=== PATIENT | male | born 1995 | race African-American/Black ===

== ENCOUNTER 2016-11-18 15:51 | Emergency (ER) | payer BC ==
[~2016-11-18] VITALS: Ht 177.8 cm; Wt 77.3 kg
[2016-11-18 15:52] VITALS: BP 116/57; PULSE 56; RESP 12; TEMP 97.6; O2SAT 98
[2016-11-18] MEDS ORDERED: OCUF0.3D RIGHT EYE (16:22)
--- NOTE | 2016-11-18 16:29 | PD ---
HPI Chief Complaint: Eye Problems/Injury Time Seen by Provider: 16:23 Travel History International Travel<30 days: No Contact w/Intl Traveler<30days: No Traveled to known affect area: No History of Present Illness HPI 21-year-old male that presents to the ED for evaluation of right eye problems. Per patient he wears contacts and on 2 days ago he went to the pool with his contacts on and when she got out of the pool he realized that he still had his contacts out and started having some discomfort to the right eye. Per patient he immediately to call the contact on the left thigh but he is not sure if he took the one of the right eye. Per patient he was able to find it. Per patient he has no sensation of foreign body but he is not sure if the contacts still there. Per patient he himself has looked multiple times with no finding anything. Per patient he was concerned because his eyes starting to turn red and he is having irritation and pain on the eye. Patient states that he has no allergies to medication. No chest pain or shortness of breath. Per patient the pain is only today and is 6 out of 10. Has not taken anything for this. Has not seen his eye doctor for this. He denies any radiation of the pain. No posterior the left eye. He has not weared contacts since. PFSH Past Medical History Medical History: Denies Significant Hx Family History Family History: Negative Social History Alcohol Use: No Tobacco Use: No Substance Use: No Allergies-Medications Reported Meds & Prescriptions Reported Meds & Active Scripts Active Ocuflox Opth Drops (Ofloxacin Opth Drops) 0.3 % Drops 1 Drop RIGHT EYE Q4HR Review of Systems General / Constitutional: No: Fever, Chills, Weight Gain, Weight Loss, Other Eyes: Positive: Drainage, Redness, Pain, Tearing, No: Diploplia, Blurred Vision, Photophobia, Foreign Body Sensation, Blind Spots, Visual changes, Blindness, Other HENT: No: Headaches, Vertigo, Lightheadedness, Sore Throat, Rhinitis, Rhinorrhea, Congestion, Nosebleed, Neck Stiffness, Neck Pain, Masses, Gingival Bleeding, Dental Difficulties, Ear Discharge, Earache, Other Cardiovascular: No: Chest Pain or Discomfort, Palpitations, Irregular Rhythm, Tachycardia, Diaphoresis, Syncope, Dyspnea on exertion, Varicosities, Edema, Cyanosis, Varicosities, Phlebitis, Claudication, Other Respiratory: No: Cough, Shortness of Breath, Wheezing, Sneezing, Orthopnea, Hemoptysis, Stridor, Night Sweats, Pleuritic Pain, Other Gastrointestinal: No: Nausea, Vomiting, Diarrhea, Abdominal Pain, Hematemesis, Hematochezia, Constipation, Changes in Bowel Habits, Indigestion, Dysphagia, Loss of Appetite, Other Genitourinary: No: Urgency, Frequency, Dysuria, Nocturia, Hematuria, Decreased Urinary Output, Oliguria, Hesitancy, Dribbling, Incontinence, Pelvic Pain, Flank Pain, Dyspareunia, Discharge, Dysmenorrhea, Menorrhagia, Metorrhagia, Vaginal Bleeding, Other Musculoskeletal: No: Myalgias, Arthralgias, Limited ROM, Weakness, Cramping, Edema, Pain, Atrophy, Other Skin: No Rash, No Itching, No Dryness, No Lumps, No Hives, No Change in Pigmentation, No Change in nails, No Alopecia, No Lesions, No Breast Lumps, No Breast Tenderness, No Breast Swelling, No Other Neurologic: No: Weakness, Dizziness, Syncope, Focal Abnormalities, Coordination Problem, Tremor, Ataxia, Headache, Change in Mentation, Slurred Speech, Paresthesia, Incontinence, Seizures, Sensory Disturbance, Other Psychiatric: No: Anxiety, Depression, Suicidal Ideations, Disorder of Thought, Mood Disorder, Substance Abuse, Homicidal Ideation, Other Endocrine: No: Heat Intolerance, Cold Intolerance, Polyuria, Polydipsia, Other Hematologic/Lymphatic: No: Easy Bruising, Lymph Node Enlargement, Other Physical Exam Narrative GENERAL: SKIN: Warm and dry. HEAD: Atraumatic. Normocephalic. EYES: Pupils equal and round 4 mm reactive to light and accommodation. No scleral icterus. No injection or drainage. EOM intact bilaterally. Peripheral vision intact bilaterally. No obvious foreign body noted on the eye itself. Fluorescein stain revealed what appears to be early corneal ulcer. No obvious sign of contact noted even with fluorescein stain. Inversion of the eyelids reveal no foreign body. ENT: No nasal bleeding or discharge. Mucous membranes pink and moist. Tongue is midline. No uvula deviation. NECK: Trachea midline. No JVD. CARDIOVASCULAR: Regular rate and rhythm. RESPIRATORY: No accessory muscle use. Clear to auscultation. Breath sounds equal bilaterally. GASTROINTESTINAL: Abdomen soft, non-tender, nondistended. Hepatic and splenic margins not palpable. MUSCULOSKELETAL: Extremities without clubbing, cyanosis, or edema. No obvious deformities. NEUROLOGICAL: Awake and alert. No obvious cranial nerve deficits. Motor grossly within normal limits. Five out of 5 muscle strength in the arms and legs. Normal speech. PSYCHIATRIC: Appropriate mood and affect; insight and judgment normal. Data Data Last Documented VS Vital Signs Date Time Temp Pulse Resp B/P Pulse Ox O2 Delivery O2 Flow Rate FiO2 11/18/16 15:52 97.6 56 12 116/57 98 Room Air MDM Medical Decision Making Medical Screen Exam Complete: Yes Emergency Medical Condition: Yes Medical Record Reviewed: Yes Differential Diagnosis Corneal abrasion versus corneal ulcer versus foreign body Narrative Course 21-year-old male that presents to the ED for evaluation of right eye irritation. Patient was properly examined and was found to have signs and symptoms very consistent what appears to be an early corneal ulcer. I did not find any sign of contact. Using a Q-tip I even try to see the resident's any contact still on the cornea itself but does not appear to be so. At this time I believe that the contact already fell and patient likely has a corneal ulcer from swimming with the contact. At this time I recommend trial of ofloxacin drops to cover for pseudomonas infection secondary to contact use. I strongly suggested the patient that he follows up with an eye doctor in the next couple of days. He was given information for Dr. Blake. I recommend Motrin or Tylenol for pain. Apply drops as prescribed. No contacts for at least 2 weeks. See ED if worsening symptoms. Diagnosis Primary Impression: Corneal ulcer Qualified Code: H16.001 - Corneal ulcer, right Referrals: Susanna Blake MD Patient Instructions: General Instructions Additional Instructions: Take medication as prescribed. Motrin or Tylenol for pain. Follow-up with eye doctor disc week. See ED for worsening symptoms. Med/Other Pt SpecificInfo: Prescription(s) given Scripts Ofloxacin Opth Drops (Ocuflox Opth Drops)0.3 % Drops1 Drop RIGHT EYE Q4HR #1 BOTTLE Ref 0 Prov:Cherise Hood MD 11/18/16 Disposition: 01 DISCHARGE HOME Condition: Stable Delvin Armendariz Nov 18, 2016 16:29
== END 2016-11-18 16:46 | disposition home or self-care (01) ==
LOC: NEPB 15:51
DX: H16.001 Unspecified corneal ulcer, right eye (principal)
CPT/HCPCS: 99283

== ENCOUNTER 2018-01-23 00:11 | Inpatient (IN) | payer BC, OTHER ==
[~2018-01-23] VITALS: Ht 170.2 cm; Wt 70.5 kg
[~2018-01-23 00:11] MED LIST: OCUF0.3D RIGHT EYE
[2018-01-23 00:23] VITALS: BP 120/71; PULSE 88; RESP 19; TEMP 98.1; O2SAT 98
[2018-01-23 00:49] LABS: AUTOMATED NEUTROPHIL # 4.7 TH/MM3 (1.8-7.7); BASOPHIL # 0.1 TH/MM3 (0-0.2); BASOPHIL % 0.7 % (0.0-2.0); EOSINOPHIL # 0.3 TH/MM3 (0-0.4); EOSINOPHIL % 3.3 % (0.0-4.0); HEMATOCRIT 45.1 % (39.0-51.0); HEMOGLOBIN 14.7 GM/DL (13.0-17.0); LYMPH % 29.5 % (9.0-44.0); LYMPHOCYTE # 2.4 TH/MM3 (1.0-4.8); MEAN CELL VOLUME 79.5 FL (80.0-100.0); MEAN CORPUSCULAR HEMOGLOBIN 25.9 PG (27.0-34.0); MEAN CORPUSCULAR HGB CONC 32.7 % (32.0-36.0); MEAN PLATELET VOLUME 9.1 FL (7.0-11.0); MONO % 9.7 % (0.0-8.0); MONOCYTE # 0.8 TH/MM3 (0-0.9); NEUT % 56.8 % (16.0-70.0); PLATELET COUNT 269 TH/MM3 (150-450); RED BLOOD COUNT 5.67 MIL/MM3 (4.50-5.90); RED CELL DISTRIBUTION WIDTH 14.1 % (11.6-17.2); WHITE BLOOD COUNT 8.3 TH/MM3 (4.0-11.0)
--- NOTE | 2018-01-23 01:02 | PD ---
HPI Chief Complaint: Psychiatric Symptoms Time Seen by Provider: 01:22 Travel History International Travel<30 days: No Contact w/Intl Traveler<30days: No Traveled to known affect area: No History of Present Illness HPI 22-year-old black male presents emergency department under [place] act for psychological evaluation. The patient states that he has been depressed for some time now. He was having problems with his girlfriend, school and other issues he does not want to talk about. He states that he had taken 12 Tylenol and 12 ibuprofen tablets around noon time today. He had also consumed a large amount of alcohol, smoke marijuana, and smoked black and mild cigars. Patient was found underneath a bridge this evening hanging out. He states that he had been seen at school by the psychologist and had been having to: Twice a day for the past week because he has been feeling depressed and having suicidal thoughts. Patient denies taking any other medications. He denies any homicidal ideation. He does complain of some upset stomach but no vomiting. Symptoms are severe. No alleviating factors. Exacerbated by social issues. PFSH Past Medical History Narrative Medical Depression Anemia: No Depression: No Diabetes: No Headaches: No Hypertension: No Schizophrenia: No Seizures: No Tetanus Vaccination: < 5 Years Past Surgical History Surgical History: No Previous Surgery Social History Alcohol Use: Yes Tobacco Use: Yes Substance Use: Yes Allergies-Medications (Allergen,Severity, Reaction): Coded Allergies: [facility] Dust (Verified Allergy, Unknown, 01/23/18) No Known Allergies (Unverified Allergy, Unknown, 01/23/18) Reported Meds & Prescriptions Reported Meds & Active Scripts Active No Active Prescriptions or Reported Medications Review of Systems General / Constitutional: No: Fever Eyes: No: Visual changes HENT: No: Headaches Cardiovascular: No: Chest Pain or Discomfort Respiratory: No: Shortness of Breath Gastrointestinal: Positive: Abdominal Pain, Indigestion, No: Nausea, Vomiting, Diarrhea Genitourinary: No: Dysuria Musculoskeletal: No: Pain Skin: No Rash Neurologic: No: Weakness Psychiatric: Positive: Depression, Suicidal Ideations, Mood Disorder, Substance Abuse, No: Anxiety, Disorder of Thought, Homicidal Ideation Endocrine: No: Polydipsia Hematologic/Lymphatic: No: Easy Bruising Physical Exam Narrative GENERAL: Well-nourished, well-developed patient. Patient does not appear to be somnolent. He is cooperative. SKIN: Warm and dry. HEAD: Normocephalic and atraumatic. EYES: No scleral icterus. No injection or drainage. ENT: No nasal drainage noted. Mucous membranes pink. Airway patent. NECK: Supple, trachea midline. Moves head freely without obvious discomfort. CARDIOVASCULAR: Regular rate and rhythm without murmurs, gallops, or rubs. RESPIRATORY: Breath sounds equal bilaterally. No accessory muscle use. GASTROINTESTINAL: Abdomen soft, non-tender, nondistended. EXTREMITIES: No cyanosis or edema. BACK: Nontender without obvious deformity. No CVA tenderness. NEURO: Patient is alert and oriented. no sensorimotor deficits. Nonfocal. Normal speech. PSYCH: No delusions. No auditory or visual hallucinations. Data Data Last Documented VS Vital Signs Date Time Temp Pulse Resp B/P (MAP) Pulse Ox O2 Delivery O2 Flow Rate FiO2 01/23/18 00:23 98.1 88 19 120/71 (87) 98 Orders Orders Complete Blood Count With Diff (01/23/18 00:20) Comprehensive Metabolic Panel (01/23/18 00:20) Psych Screen (01/23/18 00:20) Drug Screen, Random Urine (01/23/18 00:20) Alcohol (Ethanol) (01/23/18 00:20) Salicylates (Aspirin) (01/23/18 00:20) Tylenol (Acetaminophen) (01/23/18 00:20) Labs Laboratory Tests Test 01/23/18 00:27 01/23/18 00:29 White Blood Count 8.3 TH/MM3 Red Blood Count 5.67 MIL/MM3 Hemoglobin 14.7 GM/DL Hematocrit 45.1 % Mean Corpuscular Volume 79.5 FL Mean Corpuscular Hemoglobin 25.9 PG Mean Corpuscular Hemoglobin Concent 32.7 % Red Cell Distribution Width 14.1 % Platelet Count 269 TH/MM3 Mean Platelet Volume 9.1 FL Neutrophils (%) (Auto) 56.8 % Lymphocytes (%) (Auto) 29.5 % Monocytes (%) (Auto) 9.7 % Eosinophils (%) (Auto) 3.3 % Basophils (%) (Auto) 0.7 % Neutrophils # (Auto) 4.7 TH/MM3 Lymphocytes # (Auto) 2.4 TH/MM3 Monocytes # (Auto) 0.8 TH/MM3 Eosinophils # (Auto) 0.3 TH/MM3 Basophils # (Auto) 0.1 TH/MM3 CBC Comment DIFF FINAL Differential Comment Blood Urea Nitrogen 12 MG/DL Creatinine 1.12 MG/DL Random Glucose 92 MG/DL Total Protein 7.7 GM/DL Albumin 4.3 GM/DL Calcium Level 8.7 MG/DL Alkaline Phosphatase 91 U/L Aspartate Amino Transf (AST/SGOT) 19 U/L Alanine Aminotransferase (ALT/SGPT) 28 U/L Total Bilirubin 0.4 MG/DL Sodium Level 142 MEQ/L Potassium Level 3.8 MEQ/L Chloride Level 109 MEQ/L Carbon Dioxide Level 27.6 MEQ/L Anion Gap 5 MEQ/L Estimat Glomerular Filtration Rate 100 ML/MIN Salicylates Level LESS THAN 1.7 MG/DL Acetaminophen Level 10.6 MCG/ML Ethyl Alcohol Level LESS THAN 3 MG/DL Urine Opiates Screen NEG Urine Barbiturates Screen NEG Urine Amphetamines Screen NEG Urine Benzodiazepines Screen NEG Urine Cocaine Screen NEG Urine Cannabinoids Screen POS MDM Medical Decision Making Medical Screen Exam Complete: Yes Emergency Medical Condition: Yes Medical Record Reviewed: Yes Interpretation(s) Laboratory Tests Test 01/23/18 00:27 01/23/18 00:29 White Blood Count 8.3 TH/MM3 Red Blood Count 5.67 MIL/MM3 Hemoglobin 14.7 GM/DL Hematocrit 45.1 % Mean Corpuscular Volume 79.5 FL Mean Corpuscular Hemoglobin 25.9 PG Mean Corpuscular Hemoglobin Concent 32.7 % Red Cell Distribution Width 14.1 % Platelet Count 269 TH/MM3 Mean Platelet Volume 9.1 FL Neutrophils (%) (Auto) 56.8 % Lymphocytes (%) (Auto) 29.5 % Monocytes (%) (Auto) 9.7 % Eosinophils (%) (Auto) 3.3 % Basophils (%) (Auto) 0.7 % Neutrophils # (Auto) 4.7 TH/MM3 Lymphocytes # (Auto) 2.4 TH/MM3 Monocytes # (Auto) 0.8 TH/MM3 Eosinophils # (Auto) 0.3 TH/MM3 Basophils # (Auto) 0.1 TH/MM3 CBC Comment DIFF FINAL Differential Comment Blood Urea Nitrogen 12 MG/DL Creatinine 1.12 MG/DL Random Glucose 92 MG/DL Total Protein 7.7 GM/DL Albumin 4.3 GM/DL Calcium Level 8.7 MG/DL Alkaline Phosphatase 91 U/L Aspartate Amino Transf (AST/SGOT) 19 U/L Alanine Aminotransferase (ALT/SGPT) 28 U/L Total Bilirubin 0.4 MG/DL Sodium Level 142 MEQ/L Potassium Level 3.8 MEQ/L Chloride Level 109 MEQ/L Carbon Dioxide Level 27.6 MEQ/L Anion Gap 5 MEQ/L Estimat Glomerular Filtration Rate 100 ML/MIN Salicylates Level LESS THAN 1.7 MG/DL Acetaminophen Level 10.6 MCG/ML Ethyl Alcohol Level LESS THAN 3 MG/DL Urine Opiates Screen NEG Urine Barbiturates Screen NEG Urine Amphetamines Screen NEG Urine Benzodiazepines Screen NEG Urine Cocaine Screen NEG Urine Cannabinoids Screen POS Differential Diagnosis MDM: High Differential diagnoses: Schizophrenia, schizoaffective disorder, bipolar, anxiety, depression, adjustment reaction, mood disorder NOS, ODD, depressive disorder NOS, overdose infection,electrolyte abnormality, malingering. Narrative Course Mental health screening discussed with the patient. Psychiatric screen ordered. Routine laboratory tests sent for analysis. Including Tylenol and aspirin. Patient's Tylenol level is 10.6 at 2:22 AM. This is a nontoxic ingestion. His liver functions are normal. I do not believe repeating another Tylenol level at this time is indicated. This is medical clearance for psychiatric admission, nontoxic Tylenol ingestion Diagnosis Primary Impression: Medical clearance for psychiatric admission Additional Impression: Nontoxic Tylenol ingestion Scripts No Active Prescriptions or Reported Meds Condition: Сергей Shields Jan 23, 2018 01:02
[2018-01-23 01:30] LABS: ALBUMIN 4.3 GM/DL (3.4-5.0); AST (GOT) 19 U/L (15-37); BICARBONATE 27.6 MEQ/L (21.0-32.0); BLOOD UREA NITROGEN 12 MG/DL (7-18); CALCIUM 8.7 MG/DL (8.5-10.1); CHLORIDE 109 MEQ/L (98-107); CREATININE 1.12 MG/DL (0.60-1.30); GLOMERULAR FILTRATION RATE 100 ML/MIN (>89); GLUCOSE,RANDOM 92 MG/DL (74-106); SODIUM (NA) 142 MEQ/L (136-145)
[2018-01-23 01:33] LABS: ACETAMINOPHEN 10.6 MCG/ML (10.0-30.0); ALKALINE PHOSPHATASE 91 U/L (45-117); ALT (GPT) 28 U/L (12-78); TOTAL BILIRUBIN ADULT 0.4 MG/DL (0.2-1.0); TOTAL PROTEIN 7.7 GM/DL (6.4-8.2)
[2018-01-23 07:30] VITALS: BP 121/56; PULSE 62; RESP 16; O2SAT 98
[2018-01-23 11:33] VITALS: BP 138/80; PULSE 88; RESP 16; TEMP 98.5; O2SAT 96
[2018-01-23 15:55] VITALS: BP 141/75; PULSE 82; RESP 18; TEMP 98.2; O2SAT 97
--- NOTE | 2018-01-23 17:02 | PD ---
History of Present Illness Chief Complaint: Psychiatric Symptoms Time Seen by Provider: 16:45 Travel History International Travel<30 Days: No Contact w/Intl Traveler<30days: No Known affected area: No Legal Status Legal Status: L[place] Act L[place] Act Signed By: Maylin Carlson History of Present Illness: History of Present Illness HPI 22-year-old black, single, male, sophomore student at [employer] who presents to emergency department under [place] act initiated by law enforcement after his girlfriend called them reporting that he had told her he had taken some pills and was hanging out by the bridge. The police found him underneath a bridge and he reported to them that he had taken "many ibuprofen and Tylenol in the morning." And that he had been drinking alcohol. The patient admitted to ED provider that he had taken 12 Tylenol and 12 ibuprofen tablets along with a large amount of alcohol, smoked marijuana and smoking Black and mild cigars. EMR is reviewed. No previous contact with [facility] psychiatry. Current toxicology is positive for cannabinoids. His acetaminophen level is 10.6 Patient has been monitored in [facility] and has presented no suicidality. He has been withdrawn, at times he has been overheard crying while on the telephone. He is alert, oriented male, dressed in hospital scrubs with fair hygiene and grooming. He is somewhat guarded with job specification writer. Speech is clear and logical. Affect is tearful. Mood is depressed. There is no evidence of any hallucinations, no delusions, no paranoia. He admits to feeling depressed for some time and attributes to current relationship problems with his girlfriend as well as having academic problems. He describes himself as "every day I feel like I am the bad antonio". Denies current suicidal ideation. He tells me that he has been seeing a counselor at his school for the past week and that he has an upcoming appointment on Friday. He also has frequent contact with a mentor by the name of Dr. Lutz. The patient is requesting that I call his girlfriend as well as his mentors at school and he is requesting that he be discharged from the hospital. The patient does not give consent for this job specification writer to speak with his mother who I am told is on her way from [place] to [place]. In terms of his alleged overdose patient minimizes this incident. Upon obtaining collateral information it is discovered that this is his second attempted overdose in the last week. Telephone call to his girlfriend with his verbal consent at [phone]. Patient's girlfriend does not feel that it would be safe if he were to be discharged. Telephone call to his mentor Mr. Loving at [phone]. Generic message left requesting a call back. Telephone call to Dr. Lutz, patient's mentor at [employer] after obtaining consent at [phone]. Dr. Lutz informs me that he saw the patient 3 days ago and that at that time he reported feeling depressed and he had the school counselor see him on an emergency basis. The patient also told him that he had taken pill pills. Although the patient has a strong support system he does not feel it would be safe for the patient to be discharged back to school during the weekend in view of his second overdose attempt. PFSH Past Medical History Anemia: No Depression: No Diabetes: No Headaches: No Hypertension: No Schizophrenia: No Seizures: No Tetanus Vaccination: < 5 Years Past Surgical History Surgical History: No Previous Surgery Psychiatric History Psychiatric History Hx Psychiatric Treatment: PATIENT DENIES ANY SIGNIFICANT PSYCHIATRIC HISTORY. Has recently begun counseling at his college History of Inpatient Treatment: No Guns or firearms in home: No Social History Patient is born in [place]. He is attending with the [employer] and is a sophomore in the psychology Department Hx Alcohol Use: Yes Hx Tobacco Use: Yes Hx Substance Use: Yes Substance Use Type: Marijuana Hx of Substance Use Treatment: No Family Psychiatric History None reported Allergies-Medications (Allergen,Severity, Reaction): Coded Allergies: [facility] Dust (Verified Allergy, Unknown, 01/23/18) No Known Allergies (Unverified Allergy, Unknown, 01/23/18) Reported Meds & Prescriptions Reported Meds & Active Scripts Active No Active Prescriptions or Reported Medications Review of Systems Psychiatric: COMPLAINS OF: Depression, Suicidal Ideation Mental Status Examination Appearance: Appropriate Consciousness: Alert Orientation: x4 Motor Activity: Normal gait Speech: Unremarkable Language: Adequate Fund of Knowledge: Adequate Attention and Concentration: Inadequate (Decreased) Memory: Unremarkable Mood: Sad, Other (Depressed) Affect: Other (Tearful) Thought Process & Associations: Intact, Logical, Goal directed Thought Content: Appropriate Hallucination Type: None Delusion Type: None Suicidal Ideation: No Suicidal Plan: No Suicidal Intention: No Homicidal Ideation: No Homicidal Plan: No Homicidal Intention: No Insight: Poor Judgment: Impulsive MDM Medical Decision Making Medical Record Reviewed: Yes Assessment/Plan 22-year-old male under a [place] act, no previous psychiatric history with approximately 2 weeks of reported depressed mood with suicidal ideation, 2 recent overdose attempts in contacts of use of substances including alcohol and marijuana. The patient minimizes his suicidal gestures and is requesting to be discharged. He is requesting that we speak with his college mentors and after doing so it is determined that it would not be safe to discharge him to his dorm room during the week at without further treatment. The patient meets criteria for inpatient psychiatric treatment for further evaluation, stabilization, safety and for initiation of treatment. Orders Orders Complete Blood Count With Diff (01/23/18 00:20) Comprehensive Metabolic Panel (01/23/18 00:20) Psych Screen (01/23/18 00:20) Drug Screen, Random Urine (01/23/18 00:20) Alcohol (Ethanol) (01/23/18 00:20) Salicylates (Aspirin) (01/23/18 00:20) Tylenol (Acetaminophen) (01/23/18 00:20) Diet Regular Basic (01/23/18 Breakfast) Diet Regular Basic (01/23/18 Lunch) Diet Regular Basic (01/23/18 Dinner) Results Vital Signs Date Time Temp Pulse Resp B/P (MAP) Pulse Ox O2 Delivery O2 Flow Rate FiO2 01/23/18 15:55 98.2 82 18 141/75 (97) 97 Room Air 01/23/18 11:33 98.5 88 16 138/80 (99) 96 Room Air 01/23/18 07:30 62 16 121/56 (77) 98 Room Air 01/23/18 00:23 98.1 88 19 120/71 (87) 98 Laboratory Tests Test 01/23/18 00:27 01/23/18 00:29 White Blood Count 8.3 Red Blood Count 5.67 Hemoglobin 14.7 Hematocrit 45.1 Mean Corpuscular Volume 79.5 Mean Corpuscular Hemoglobin 25.9 Mean Corpuscular Hemoglobin Concent 32.7 Red Cell Distribution Width 14.1 Platelet Count 269 Mean Platelet Volume 9.1 Neutrophils (%) (Auto) 56.8 Lymphocytes (%) (Auto) 29.5 Monocytes (%) (Auto) 9.7 Eosinophils (%) (Auto) 3.3 Basophils (%) (Auto) 0.7 Neutrophils # (Auto) 4.7 Lymphocytes # (Auto) 2.4 Monocytes # (Auto) 0.8 Eosinophils # (Auto) 0.3 Basophils # (Auto) 0.1 CBC Comment DIFF FINAL Differential Comment Blood Urea Nitrogen 12 Creatinine 1.12 Random Glucose 92 Total Protein 7.7 Albumin 4.3 Calcium Level 8.7 Alkaline Phosphatase 91 Aspartate Amino Transf (AST/SGOT) 19 Alanine Aminotransferase (ALT/SGPT) 28 Total Bilirubin 0.4 Sodium Level 142 Potassium Level 3.8 Chloride Level 109 Carbon Dioxide Level 27.6 Anion Gap 5 Estimat Glomerular Filtration Rate 100 Salicylates Level LESS THAN 1.7 Acetaminophen Level 10.6 Ethyl Alcohol Level LESS THAN 3 Urine Opiates Screen NEG Urine Barbiturates Screen NEG Urine Amphetamines Screen NEG Urine Benzodiazepines Screen NEG Urine Cocaine Screen NEG Urine Cannabinoids Screen POS Diagnosis Primary Impression: Medical clearance for psychiatric admission Additional Impressions: Nontoxic Tylenol ingestion Adjustment disorder Admitting Information Admitting Physician Requests: Admit Prescriptions No Active Prescriptions or Reported Meds Condition: Stable Problem Qualifiers Additional Impressions: Adjustment disorder Qualified Codes: F43.21 - Adjustment disorder with depressed mood Meghann Gold Jan 23, 2018 17:02
--- NOTE | 2018-01-23 18:04 | PD ---
Physical Exam Date Seen by Provider: Jan 23, 2018 Time Seen by Provider: 18:03 Narrative For full history and physical examination please see previous notes. Data Data Last Documented VS Vital Signs Date Time Temp Pulse Resp B/P (MAP) Pulse Ox O2 Delivery O2 Flow Rate FiO2 01/23/18 18:11 97.8 74 18 125/75 (92) 96 Room Air Orders Orders Complete Blood Count With Diff (01/23/18 00:20) Comprehensive Metabolic Panel (01/23/18 00:20) Psych Screen (01/23/18 00:20) Drug Screen, Random Urine (01/23/18 00:20) Alcohol (Ethanol) (01/23/18 00:20) Salicylates (Aspirin) (01/23/18 00:20) Tylenol (Acetaminophen) (01/23/18 00:20) Diet Regular Basic (01/23/18 Breakfast) Diet Regular Basic (01/23/18 Lunch) Diet Regular Basic (01/23/18 Dinner) Labs Laboratory Tests Test 01/23/18 00:27 01/23/18 00:29 White Blood Count 8.3 TH/MM3 Red Blood Count 5.67 MIL/MM3 Hemoglobin 14.7 GM/DL Hematocrit 45.1 % Mean Corpuscular Volume 79.5 FL Mean Corpuscular Hemoglobin 25.9 PG Mean Corpuscular Hemoglobin Concent 32.7 % Red Cell Distribution Width 14.1 % Platelet Count 269 TH/MM3 Mean Platelet Volume 9.1 FL Neutrophils (%) (Auto) 56.8 % Lymphocytes (%) (Auto) 29.5 % Monocytes (%) (Auto) 9.7 % Eosinophils (%) (Auto) 3.3 % Basophils (%) (Auto) 0.7 % Neutrophils # (Auto) 4.7 TH/MM3 Lymphocytes # (Auto) 2.4 TH/MM3 Monocytes # (Auto) 0.8 TH/MM3 Eosinophils # (Auto) 0.3 TH/MM3 Basophils # (Auto) 0.1 TH/MM3 CBC Comment DIFF FINAL Differential Comment Blood Urea Nitrogen 12 MG/DL Creatinine 1.12 MG/DL Random Glucose 92 MG/DL Total Protein 7.7 GM/DL Albumin 4.3 GM/DL Calcium Level 8.7 MG/DL Alkaline Phosphatase 91 U/L Aspartate Amino Transf (AST/SGOT) 19 U/L Alanine Aminotransferase (ALT/SGPT) 28 U/L Total Bilirubin 0.4 MG/DL Sodium Level 142 MEQ/L Potassium Level 3.8 MEQ/L Chloride Level 109 MEQ/L Carbon Dioxide Level 27.6 MEQ/L Anion Gap 5 MEQ/L Estimat Glomerular Filtration Rate 100 ML/MIN Salicylates Level LESS THAN 1.7 MG/DL Acetaminophen Level 10.6 MCG/ML Ethyl Alcohol Level LESS THAN 3 MG/DL Urine Opiates Screen NEG Urine Barbiturates Screen NEG Urine Amphetamines Screen NEG Urine Benzodiazepines Screen NEG Urine Cocaine Screen NEG Urine Cannabinoids Screen POS MDM Medical Record Reviewed: Yes Supervised Visit with TARUN: No Narrative Course For full H&P please see previous notes. Patient was brought to the emergency department under Royer rankin for psychiatric evaluation. Patient was seen and evaluated, medically cleared. He was then evaluated by the psychiatric nurse practitioner, Royer act was lifted patient will be discharged home. Please see psychiatry notes for full documentation. Diagnosis Primary Impression: Nontoxic Tylenol ingestion Referrals: [facility] Patient Instructions: General Instructions Additional Instruction: Follow-up with Dimitri Blum Follow-up with a primary doctor Return to emergency department for any new or worsening symptoms Med/Other Pt SpecificInfo: No Change to Meds Scripts No Active Prescriptions or Reported Meds Disposition: 01 DISCHARGE HOME Condition: Stable Colleen Zabala Jan 23, 2018 18:04
[2018-01-23 18:11] VITALS: BP 125/75; PULSE 74; RESP 18; TEMP 97.8; O2SAT 96
[2018-01-23] MEDS ORDERED: QUEtiapine FUMARATE 25 MG TAB PO ONE (19:45)
[2018-01-23] MEDS ORDERED: MAGNESIUM HYDROXIDE SUSP 30 ML CUP PO PRN (20:00)
[2018-01-23] MEDS ORDERED: ALUMINUM/MAGNESIUM/SIMETH 30 ML CUP PO PRN (20:00)
[2018-01-23] MEDS ORDERED: ACETAMINOPHEN 325 MG TAB PO PRN (20:00)
[2018-01-24 01:48] VITALS: BP 177/76; PULSE 57; RESP 18; TEMP 98.1; O2SAT 100
[2018-01-24 06:09] VITALS: BP 132/64; PULSE 60; RESP 16; TEMP 97.9; O2SAT 98
[2018-01-24 11:47] LABS: BICARBONATE 28.6 MEQ/L (21.0-32.0); BLOOD UREA NITROGEN 11 MG/DL (7-18); CALCIUM 9.4 MG/DL (8.5-10.1); CHLORIDE 107 MEQ/L (98-107); CREATININE 1.02 MG/DL (0.60-1.30); GLOMERULAR FILTRATION RATE 112 ML/MIN (>89); GLUCOSE,RANDOM 93 MG/DL (74-106); SODIUM (NA) 141 MEQ/L (136-145)
[2018-01-24 11:48] LABS: CHOLESTEROL 137 MG/DL (120-200); TRIGLYCERIDES 96 MG/DL (42-150)
[2018-01-24 11:50] LABS: CHOLESTEROL/ HDL RATIO 2.64 RATIO; HDL CHOLESTEROL 51.7 MG/DL (40.0-60.0); LDL CHOLESTEROL 66 MG/DL (0-99)
[2018-01-24 13:33] LABS: HEMOGLOBIN A1C 5.4 % (4.3-6.0)
[2018-01-24] MEDS ORDERED: LORazepam 2 MG/ML VIAL IV PUSH PRN ×4 (13:45)
[2018-01-24] MEDS ORDERED: FLUMAZENIL 0.5 MG/5 ML VIAL IV PUSH PRN (13:45)
[2018-01-24] MEDS ORDERED: LORazepam 1 MG TAB PO PRN (13:45)
[2018-01-24] MEDS ORDERED: LORazepam 2 MG TAB PO PRN (13:45)
--- NOTE | 2018-01-24 13:45 | HHI.HP ---
Provisional Diagnosis Admission Date Jan 23, 2018 at 19:56 [place]. 1. Major depressive disorder, single episode, severe without psychotic features 2. Alcohol abuse 3. Rule out cannabis abuse [place]. Deferred Certification of Person's Competence To Provide Express and Informed Consent I have personally examined Alfonso ReedJr , a person being served at [facility] on, Jan 24, 2018 13:28. Express and informed consent means consent voluntarily given in writing, by a competent person, after sufficient explanation and disclosure of the subject matter involved to enable the person to make a knowing and willful decision without any element of force, fraud, deceit, duress, or other form of constraint or coercion. This person is 18 years of age or older, is not now known to be incompetent to consent to treatment with a guardian advocate, and does not have a health care surrogate or proxy currently making medical treatment decisions. I have found this person to be one of the following: [x] Competent to provide express and informed consent, as defined above, for voluntary admission to this facility and is competent to provide express and informed consent for treatment. He/she has the consistent capacity to make well reasoned, willful, and knowing decisions concerning his or her medical or mental health treatment. The person fully and consistently understands the purpose of the admission for examination/placement and is fully capable of personally exercising all rights assured [place] Incompetent to provide express and informed consent to voluntary admission, and this is incompetent to provide express and informed consent to treatment. The person must be transferred to involuntary status and a petition for a guardian advocate filed with the Circuit Court. [] Refusing to provide express and informed consent to voluntary admission but is competent to provide express and informed consent for treatment. The person must be discharged or transferred to involuntary status. Form shall be completed within 24 hours of a person's arrival at the receiving facility and filed in the clinical record of each person: 1. Admitted on a voluntary basis 2. Permitted to provide express and informed consent to his/her own treatment 3. Allowed to transfer from involuntary to voluntary status 4. Prior to permitting a person to consent to his or her own treatment after having been previously found incompetent to consent to treatment. History of Present Illness Capacity: Has Capacity Psych Chief Complaint: Depression, recent overdoses HPI Mr. Reed is a 22-year-old male with no reported psychiatric diagnoses who presents under a Linton act following overdose on Tylenol and ibuprofen in the setting of alcohol consumption. According to the ED provider note, the patient took about a dozen of each. Patient was also seen by the psychiatric nurse practitioner who obtained collateral information, which I have reviewed. Reviewing the electronic medical record, I see no previous psychiatric contact within our system. Patient seen and examined with nurse. Chart reviewed. Case discussed with nursing staff. On my examination today, the patient presents as tearful and dysphoric. He says that about a week ago he was drinking heavily and overdosed on Advil in uncertain quantity. He told someone at his school and was sent to a psychologist for counseling. Patient notes that he is failing classes at school and this, in addition to recent breakup with girlfriend, has been a source of significant stress for him. He reports that prior to admission he had been drinking heavily once again and took another overdose as noted above. He complains of ongoing low mood along with sleep and appetite disturbance. He is somewhat anhedonic and withdrawn. He presently denies any suicidal or homicidal ideation, intent or plan. I can elicit no hypomanic or manic symptoms. He denies any audiovisual hallucinations. I can elicit no delusional beliefs. The remainder of the psychiatric ROS is negative. No acute physical complaints. Past psychiatric history: Patient denies a history of psychiatric diagnosis. He is not currently seeing a psychiatrist but is following with a therapist as noted above. He reports that he was psychiatrically admitted as a child ("my Mom just put me in there") but has not been admitted in adulthood. He denies any history of suicide attempts or violence. Family history: The patient denies a history of mental illness or suicide. He does report that his father and brother struggle with substance use issues. Chemical dependency history: The patient reports that he has been drinking heavily within the last several weeks. He reports that he drinks a sixpack of beer daily and sometimes some Smirnoff vodka as well. He denies a history of blackouts, DTs or seizures. Urine toxicology is positive for cannabis, and the patient did report cannabis use to providers in the ED. Social history: Patient is originally from [place] and is in the area attending [employer]. He lives off campus. He has 5 roommates with whom he gets along. He attends [employer] and is studying psychology as a sophomore. He had been in a long-term relationship of 2 years but broke up with his girlfriend recently. He has no children and notes tearfully that his girlfriend had been but had procured an . 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 He denies any legal history. He denies any access to guns or firearms. He describes his morgan as oriental orthodox. He denies any history of abuse. Review of Systems Except as stated in HPI: all other systems reviewed are Neg Past Family Social History Coded Allergies: [place] Dust (Verified Allergy, Unknown, 01/23/18) No Known Allergies (Unverified Allergy, Unknown, 01/23/18) Past Medical History Patient denies any past medical history Discontinued Scripts Ofloxacin Opth Drops (Ocuflox Opth Drops) 0.3 % Drops, 1 DROP RIGHT EYE Q4HR for Infection, #1 BOTTLE 0 Refills Prov:Cherise Hood MD 11/18/16 Current Medications Medications (Trade) Dose Ordered Sig/Ai Route Start Time Stop Time Status Last Admin (Tylenol) 650 mg Q4H PRN PO 01/23/18 20:00 (Milk Of Magnesia Liq) 30 ml DAILY PRN PO 01/23/18 20:00 (Mag-Al Plus Susp Liq) 30 ml Q6H PRN PO 01/23/18 20:00 Patient's Strengths (min. 2) In a monitored setting. Verbally fluent. Physical Exam Physical exam completed by ED provider. On my examination today, the patient appears to be in no acute physical distress. No motor abnormalities noted. No signs of intoxication or withdrawal noted. Labs and vitals reviewed: Vital Signs Vital Signs Date Time Temp Pulse Resp B/P (MAP) Pulse Ox O2 Delivery O2 Flow Rate FiO2 01/24/18 06:09 97.9 60 16 132/64 (86) 98 01/23/18 18:11 Room Air I/O 01/24/18 01/24/18 01/25/18 08:00 16:00 00:00 Intake Total 240 ml Balance 240 ml Lab Results Test 01/24/18 10:45 Blood Urea Nitrogen 11 MG/DL Creatinine 1.02 MG/DL Random Glucose 93 MG/DL Calcium Level 9.4 MG/DL Sodium Level 141 MEQ/L Potassium Level 3.8 MEQ/L Chloride Level 107 MEQ/L Carbon Dioxide Level 28.6 MEQ/L Anion Gap 5 MEQ/L Estimat Glomerular Filtration Rate 112 ML/MIN Triglycerides Level 96 MG/DL Cholesterol Level 137 MG/DL LDL Cholesterol 66 MG/DL HDL Cholesterol 51.7 MG/DL Cholesterol/HDL Ratio 2.64 RATIO EKG reviewed. Hemoglobin A1c pending. Mental Status Examination Appearance: Appropriate Consciousness: Alert Orientation: x4 Motor Activity: Normal gait Speech: Unremarkable Language: Adequate Fund of Knowledge: Adequate Attention and Concentration: Other (Focus and concentration subjectively poor) Memory: Unremarkable Mood: Other (Depressed) Affect: Other (Tearful and dysphoric) Thought Process & Associations: Intact, Logical, Goal directed, Linear Thought Content: Appropriate Hallucination Type: None Delusion Type: None Suicidal Ideation: No (Unreliable to contract for safety) Suicidal Plan: No Suicidal Intention: No Homicidal Ideation: No Homicidal Plan: No Homicidal Intention: No Insight: Poor Judgment: Impulsive Assessment & Plan Problem List: (1) Major depressive disorder, single episode, severe with psychotic features ICD Codes: F32.3 - Major depressive disorder, single episode, severe with psychotic features (2) Alcohol abuse ICD Codes: F10.10 - Alcohol abuse, uncomplicated Assessment & Plan 22-year-old male with psychiatric history as detailed above who presents under a Linton act. On my examination today, the patient describes 2 recent overdoses in the setting of worsening dysphoria. Although this dysphoria is to some extent reactive to psychosocial stressors, it seems to be taking on a life of its own, and I do believe that the patient meets criteria for major depressive episode. Patient additionally seems to be struggling with worsening substance use, particularly alcohol. Patient requires psychiatric hospitalization at this time for safety, observation and stabilization. Admit inpatient. Voluntary status. For low mood, initiate Remeron 15 mg at bedtime. R/B/A for medications discussed with patient. CIWA scale with Ativan for the management of any withdrawal. Thiamine and folate. Seizure precautions. Check a TSH. Vitals every shift. Counselor to see. Collateral information. Disposition planning. Estimated length of stay: 5-7 days. Discharge Planning Pending psychiatric stabilization Request HC Surrog/Guard Advoc?: No Arnulfo Moreno MD Jan 24, 2018 13:45
--- NOTE | 2018-01-24 16:46 | EKG ---
Date Performed: 01/24/2018 Time Performed: 11:51:40 PTAGE: 22 years EKG: SINUS BRADYCARDIA WITH SINUS ARRHYTHMIA BORDERLINE ECG NO PREVIOUS TRACING DOCTOR: Alexis Mao Interpretating Date/Time 01/24/2018 16:47:10
[2018-01-24 18:14] VITALS: BP 133/61; PULSE 60; RESP 18; TEMP 98; O2SAT 97
[2018-01-24] MEDS: MIRTAZAPINE 15 MG TAB PO SCH (21:34)
[2018-01-25 05:37] VITALS: BP 105/59; PULSE 58; RESP 16; TEMP 98; O2SAT 99
[2018-01-25] MEDS: MULTIVITAMINS/MINERALS THERAPEUTIC TAB PO SCH (08:34)
[2018-01-25] MEDS: FOLIC ACID 1 MG TAB PO SCH (08:34)
[2018-01-25] MEDS: THIAMINE HCL 100 MG TAB PO SCH (08:37)
--- NOTE | 2018-01-25 10:33 | HHI.PYPN ---
Subjective Chief Complaint: Depression, recent overdoses Remarks Patient was seen and case was discussed with nursing. Patient is embarrassed about his recent attempts and minimizes the circumstances. He is pleasant but shy and anxious during the interview. He is quite vague when discussing his stressors. He attributes his thought process secondary to alcohol intoxication. He denies suicidal or homicidal ideation intent or plan. Mental Status Examination Appearance: Appropriate Consciousness: Alert Orientation: x4 Motor Activity: Normal gait Speech: Unremarkable Language: Adequate Fund of Knowledge: Adequate Attention and Concentration: Other (Focus and concentration subjectively poor) Memory: Unremarkable Mood: Sad Affect: Anxious Thought Process & Associations: Intact, Logical, Goal directed, Linear Thought Content: Appropriate Hallucination Type: None Delusion Type: None Suicidal Ideation: No (Unreliable to contract for safety) Suicidal Plan: No Suicidal Intention: No Homicidal Ideation: No Homicidal Plan: No Homicidal Intention: No Insight: Poor Judgment: Impulsive Results Labs Test 01/24/18 10:45 Blood Urea Nitrogen 11 MG/DL Creatinine 1.02 MG/DL Random Glucose 93 MG/DL Calcium Level 9.4 MG/DL Sodium Level 141 MEQ/L Potassium Level 3.8 MEQ/L Chloride Level 107 MEQ/L Carbon Dioxide Level 28.6 MEQ/L Anion Gap 5 MEQ/L Estimat Glomerular Filtration Rate 112 ML/MIN Hemoglobin A1c 5.4 % Triglycerides Level 96 MG/DL Cholesterol Level 137 MG/DL LDL Cholesterol 66 MG/DL HDL Cholesterol 51.7 MG/DL Cholesterol/HDL Ratio 2.64 RATIO Thyroid Stimulating Hormone 3rd Gen 0.957 uIU/ML Vitals/IOs Vital Signs Date Time Temp Pulse Resp B/P (MAP) Pulse Ox O2 Delivery O2 Flow Rate FiO2 01/25/18 05:37 98.0 58 16 105/59 (74) 99 01/23/18 18:11 Room Air Assessment & Plan Problem List: (1) Major depressive disorder, single episode, severe with psychotic features ICD Codes: F32.3 - Major depressive disorder, single episode, severe with psychotic features (2) Alcohol abuse ICD Codes: F10.10 - Alcohol abuse, uncomplicated Assessment & Plan Continue current treatment plan Justification for Cont. Inpt. Patient would decompensate in a less restrictive setting Request HC Surrog/Guard Advoc?: No Nas Walton DO Jan 25, 2018 10:33
[2018-01-25 18:21] VITALS: BP 135/65; PULSE 62; RESP 16; TEMP 98.1; O2SAT 99
[2018-01-25] MEDS: MIRTAZAPINE 15 MG TAB PO SCH (20:44)
[2018-01-26 06:33] VITALS: BP 120/56; PULSE 55; RESP 14; TEMP 98; O2SAT 98
[2018-01-26] MEDS: MULTIVITAMINS/MINERALS THERAPEUTIC TAB PO SCH (09:00)
[2018-01-26] MEDS: FOLIC ACID 1 MG TAB PO SCH (09:00)
[2018-01-26] MEDS: THIAMINE HCL 100 MG TAB PO SCH (09:00)
[2018-01-26] MEDS ORDERED: MIRTA15 PO (15:04)
--- NOTE | 2018-01-26 15:04 | HHI.DS ---
Psychiatry Discharge Summary Inpatient Psychiatric care?: Yes Advance Directive: No Reason Not Provided: NOT AVAILABLE Mental Health AdvanceDirective: No Health Care Proxy: No Admission Admission Date Jan 23, 2018 at 19:56 Admission Diagnosis: (1) Major depressive disorder, single episode, severe with psychotic features ICD Code: F32.3 - Major depressive disorder, single episode, severe with psychotic features (2) Alcohol abuse ICD Code: F10.10 - Alcohol abuse, uncomplicated Brief History Mr. Reed is a 22-year-old male with no reported psychiatric diagnoses who presents under a [place] act following overdose on Tylenol and ibuprofen in the setting of alcohol consumption. According to the ED provider note, the patient took about a dozen of each. Patient was also seen by the psychiatric nurse practitioner who obtained collateral information, which I have reviewed. Reviewing the electronic medical record, I see no previous psychiatric contact within our system. Patient seen and examined with nurse. Chart reviewed. Case discussed with nursing staff. On my examination today, the patient presents as tearful and dysphoric. He says that about a week ago he was drinking heavily and overdosed on Advil in uncertain quantity. He told someone at his school and was sent to a psychologist for counseling. Patient notes that he is failing classes at school and this, in addition to recent breakup with girlfriend, has been a source of significant stress for him. He reports that prior to admission he had been drinking heavily once again and took another overdose as noted above. He complains of ongoing low mood along with sleep and appetite disturbance. He is somewhat anhedonic and withdrawn. He presently denies any suicidal or homicidal ideation, intent or plan. I can elicit no hypomanic or manic symptoms. He denies any audiovisual hallucinations. I can elicit no delusional beliefs. The remainder of the psychiatric ROS is negative. No acute physical complaints. Past psychiatric history: Patient denies a history of psychiatric diagnosis. He is not currently seeing a psychiatrist but is following with a therapist as noted above. He reports that he was psychiatrically admitted as a child ("my Mom just put me in there") but has not been admitted in adulthood. He denies any history of suicide attempts or violence. Family history: The patient denies a history of mental illness or suicide. He does report that his father and brother struggle with substance use issues. Chemical dependency history: The patient reports that he has been drinking heavily within the last several weeks. He reports that he drinks a sixpack of beer daily and sometimes some Smirnoff vodka as well. He denies a history of blackouts, DTs or seizures. Urine toxicology is positive for cannabis, and the patient did report cannabis use to providers in the ED. Social history: Patient is originally from [place] and is in the area attending [employer]. He lives off campus. He has 5 roommates with whom he gets along. He attends [employer] and is studying psychology as a sophomore. He had been in a long-term relationship of 2 years but broke up with his girlfriend recently. He has no children and notes tearfully that his girlfriend had been but had procured an . 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 He denies any legal history. He denies any access to guns or firearms. He describes his morgan as temple. He denies any history of abuse. Tobacco Use In Past 30 Days: No Tobacco Past 30 Days Alcohol Use: Monthly or Less Hospital Course Patient was admitted to a locked, inpatient psychiatric unit. Appropriate precautions were in place throughout patient's hospital stay. Patient was seen and examined on the unit by psychiatry and also visited by counselor. Psychotropic medications were adjusted. Patient tolerated medications well without side effects. There was no evidence of any suicidality or homicidality on the inpatient unit. There was no evidence of self-care deficit. Patient remained in behavioral control and was compliant with medications. On the day of discharge: Patient seen and examined with nurse. Chart reviewed. Case discussed with nursing staff. No behavioral issues noted overnight. Case discussed with counselor who has obtained collateral information from patient's mother and grandmother to the effect that they wish to have the patient discharged into their care today. On my examination today, the patient is requesting discharge from the inpatient psychiatric unit today. He describes his mood as "really great" and says that he feels more comfortable now. He denies any suicidal or homicidal ideation, intent or plan on direct questioning and contracts for safety. I can elicit no severe depressive or hypomanic/manic symptoms. No reported audiovisual hallucinations, nor can I elicit any delusional material. There is no evidence of impairment in reality construction. He denies side effects from medications. He has no acute physical complaints. Weighing the relevant factors and based on the available evidence, I shoe patternmaker that the patient does not meet criteria for involuntary psychiatric hospitalization, especially because family are available to assume care of his case. That having been said, patient's departure from the inpatient unit seems fairly abrupt given the severity of his presenting symptoms. Having no basis to retain the patient over his objection, I will discharge him AGAINST MEDICAL ADVICE. Psychiatric follow-up as arranged by counselor. Patient is also to follow up with primary care. Patient to abstain from substances of abuse. Patient to return to psychiatric emergency room for any concerning psychiatric symptoms as part of a general safety plan. Results Blood Pressure 120 / 56 Vital Signs Date Time Temp Pulse Resp B/P (MAP) Pulse Ox O2 Delivery O2 Flow Rate FiO2 01/26/18 06:33 98.0 55 14 120/56 (77) 98 01/23/18 18:11 Room Air Laboratory Tests Test 01/24/18 10:45 Laboratory Results Test 01/24/18 10:45 Cholesterol Level 137 MG/DL (120-200) HDL Cholesterol 51.7 MG/DL (40.0-60.0) Hemoglobin A1c 5.4 % (4.3-6.0) LDL Cholesterol 66 MG/DL (0-99) Triglycerides Level 96 MG/DL (42-150) Summary of Procedures None done Imaging None done Pending results at discharge: No Medications # of Antipsychotic meds at D/C: 0 Approp Antipsych med options 1 - Minimum of three failed multiple trials of monotherapy. 2 - Documented plan to taper to monotherapy due to previous use of multiple meds OR cross-taper in progress at D/C. 3 - Documentation of augmentation of Clozapine. 4 - Justification other than those listed in allowable values 1-3, document here : Discharge Discharge Date: Jan 26, 2018 Discharge Diagnosis: (1) Major depressive disorder, single episode, severe with psychotic features Diagnosis: Principal ICD Code: F32.3 - Major depressive disorder, single episode, severe with psychotic features (2) Alcohol abuse Diagnosis: Secondary ICD Code: F10.10 - Alcohol abuse, uncomplicated Pt Condition on Discharge: Guarded (because AMA discharge) Discharge Disposition: Discharge Home Discharge Instructions Diet Instructions: As Tolerated, No Restrictions Activities you can perform: Weight Bearing as Donny Scheduled Appointment: As per counselors notes New Medications: Mirtazapine (Mirtazapine) 15 Mg Tab 15 MG PO HS for Mental Health for 10 Days, TAB 2 Refills Discharge Time <= 30 minutes Mental Status Examination Appearance: Appropriate Consciousness: Alert Orientation: x4 Motor Activity: Normal gait, Other (No motor abnormalities noted. No signs of withdrawal noted.) Speech: Unremarkable Language: Adequate Fund of Knowledge: Adequate Attention and Concentration: Adequate Memory: Unremarkable Mood: Appropriate Affect: Appropriate Thought Process & Associations: Intact, Logical, Goal directed, Linear Thought Content: Appropriate Hallucination Type: None Delusion Type: None Suicidal Ideation: No Suicidal Plan: No Suicidal Intention: No Homicidal Ideation: No Homicidal Plan: No Homicidal Intention: No Mental Status Exam Remarks Insight and judgment are fair at best Discharge/Advance Care Plan Health Problems: (1) Major depressive disorder, single episode, severe with psychotic features (2) Alcohol abuse Goals to promote your health * To prevent worsening of your condition and complications * To maintain your health at the optimal level Directions to meet your goals Take your medications as prescribed Follow your dietary instruction Follow activity as directed Keep your appointments as scheduled Take your immunizations and boosters as scheduled If your symptoms worsen call your PCP, if no PCP go to Urgent Care Center or Emergency Room For 28/04 questions related to your inpatient stay or results of tests pending at discharge, please contact Dr. Arnulfo Moreno at Smoking is Dangerous to Your Health. Avoid second hand smoking Arnulfo Moreno MD Jan 26, 2018 15:04
== END 2018-01-26 15:30 | disposition left against medical advice (07) | DRG 885 ==
LOC: NEPD 00:11 → NEDA 19:56 → H260 21:19
PROVIDERS: ADMIT Psychiatry & Neurology Psychiatry; ATTEND Psychiatry & Neurology Psychiatry
DX: F32.3 Major depressive disorder, single episode, severe with psychotic features (principal); F10.10 Alcohol abuse, uncomplicated; F12.90 Cannabis use, unspecified, uncomplicated; Z72.0 Tobacco use
CPT/HCPCS: 80048; 80053; 80061; 80307; 83036; 84443; 85025; 93005; 99285